=== PATIENT | male | born 1990 | race African-American/Black ===

== ENCOUNTER 2020-07-05 18:56 | Emergency (ER) | payer MEDICAID ==
[~2020-07-05] VITALS: Ht 177.8 cm; Wt 86.2 kg
[2020-07-05 20:35] VITALS: BP 134/89
[2020-07-05] MEDS ORDERED: cefTRIAXone SOD 500 MG VL IM ONE (21:15)
[2020-07-05] MEDS ORDERED: NEOMYCIN-BACITRACIN-POLYM UNITDOSE PKG TOP OINT TOP ONE (21:15)
[2020-07-05] MEDS ORDERED: TETANUS-DIPTH-ACEL PERTUSSIS 0.5ML SYR Tdap IM ONE (21:15)
[2020-07-05] MEDS ORDERED: LIDOCAINE 1% HCL (LOCAL ANESTH.) INJ 20ML MDV ID ONE (21:15)
[2020-07-05] MEDS ORDERED: cefTRIAXone SOD 1,000 MG VL IM ONE (21:15)
== END 2020-07-06 00:29 | disposition home or self-care (01) ==
LOC: ER 18:56
DX: S61.412A Laceration without foreign body of left hand, initial encounter (principal); M79.661 Pain in right lower leg; Y08.89XA Assault by other specified means, initial encounter; Y93.89 Activity, other specified; Y92.89 Other specified places as the place of occurrence of the external cause; Y99.8 Other external cause status
CPT/HCPCS: 12002; 73130; 90471; 90715; 96372; 99284; J0696; J2001